=== PATIENT | female | born 1980 | race Caucasian/White ===

== ENCOUNTER → 2016-06-11 | Outpatient (CLI) | payer OTHER ==
--- NOTE | 2016-06-15 05:59 | SLEEPHOME ---
DATE OF PROCEDURE: 06/11/2016 ORDERED BY: Ela Thomson NP Diagnostic home sleep testing was performed due to concern for the obstructive sleep apnea syndrome. For testing, a NOX-T3 respiratory monitoring device. Continuous record was made of pulse, oxygen saturation, airlfow, chest and abdominal strain, and body position. 9 hours and 59 minutes of data were reviewed. Of these, 4 hours and 26 minutes were marked as time in bed. During the interval marked time in bed, there were 36 respiratory events identified of 10 seconds in duration or greater. The events were obstructive. Baseline heart rate 93 beats per minute. Pulse rate ranged 80-118 beats per minute. Baseline saturation 92%. Lowest oxygen saturation 85%. Testing was performed in both the supine and non-supine positions. IMPRESSION: Abnormal home sleep testing with repetitive respiratory events and oxygen desaturation to 855% with a respiratory event index of 8.1 is consistent with the obstructive sleep apnea syndrome. RECOMMENDATION: The patient should be encouraged to return to the sleep disorder center for formal pressure titration. In the interim, alcohol and sedative avoidance should be practiced and caution exercised during the operation of motor vehicles.
== END ==
LOC: M SLEEP HO 10:05
PROVIDERS: ATTEND Nurse Practitioner Adult Health
DX: G47.8 Other sleep disorders (principal)

== ENCOUNTER → 2017-01-13 | Outpatient (REF) | payer OTHER | LOC: M SFHCLERA 18:05 | PROVIDERS: ATTEND Nurse Practitioner Family | DX: J06.9 Acute upper respiratory infection, unspecified (principal) ==

== ENCOUNTER → 2018-06-11 | Outpatient (CLI) | payer BC ==
[~2018-06-11] MED LIST: CALC600T60 PO; LEVO-91 PO; PRIL20TA2 PO; PROZ40CA PO; VITA200016 PO
--- NOTE | 2018-06-12 02:25 | REP ---
Clinical: Abdominal pain and nausea. Technique: Two supine views of the abdomen and pelvis. Findings: Bowel gas pattern is nonspecific. No organomegaly. No abnormal calcifications. Skeletal structures are intact. Small phleboliths suggested in the pelvis. Impression: Nonspecific abdominal radiographs. Electronically Signed by Alexis Brunner MD 06/12/2018 02:16 A
== END ==
LOC: M LAB 12:32
DX: R10.9 Unspecified abdominal pain (principal); R11.2 Nausea with vomiting, unspecified; K62.5 Hemorrhage of anus and rectum; E73.9 Lactose intolerance, unspecified; R12 Heartburn

== ENCOUNTER → 2018-06-12 | Outpatient (REF) | payer BC ==
[2018-06-18 00:06] LABS: CALPROTECTIN STOOL 26 ug/g (0-120); FATS NEUTRAL Normal (.); FATS TOTAL Normal (.); PANCREATIC ELASTASE STOOL 474 (>200)
== END ==
LOC: M LAB REF 12:24
PROVIDERS: ATTEND Internal Medicine Gastroenterology
DX: R10.9 Unspecified abdominal pain (principal); R11.0 Nausea; K62.5 Hemorrhage of anus and rectum; E73.9 Lactose intolerance, unspecified; R12 Heartburn; R11.10 Vomiting, unspecified

== ENCOUNTER 2018-06-17 20:46 | Emergency (ER) | payer BC ==
[~2018-06-17] VITALS: Ht 157.5 cm; Wt 107.3 kg
[2018-06-17] MEDS ORDERED: VITA200016 PO (21:29)
[2018-06-17] MEDS ORDERED: PROZ40CA PO (21:29)
[2018-06-17] MEDS ORDERED: CALC600T60 PO (21:29)
[2018-06-17] MEDS ORDERED: PRIL20TA2 PO (21:29)
[2018-06-17] MEDS ORDERED: LEVO-91 PO (21:29)
[2018-06-17 21:45] LABS: BASO # 0.1 10^3/uL (0.0-0.2); BASO % 0.7 % (0.0-1.0); EOS # 0.3 10^3/uL (0.0-0.50); EOS % 2.2 % (0.0-3.0); HEMATOCRIT 42.6 % (36.0-47.0); HEMOGLOBIN 14.4 g/dl (12.0-15.5); LYMPH # 3.8 10^3/uL (1.5-4.5); LYMPH % 27.5 % (24.0-44.0); MEAN CORPUSCULAR HEMOGLOBIN 31.4 pg (27.0-33.0); MEAN CORPUSCULAR HGB CONC 33.8 g/dl (32.0-36.5); MONO # 1.1 10^3/uL (0.0-0.8); MONO % 8.2 % (0.0-5.0); NEUTROPHILS # 8.4 10^3/uL (1.8-7.7); NEUTROPHILS % 60.8 % (36.0-66.0); PLATELET COUNT, AUTOMATED 363 10^3/uL (150-450); RED BLOOD COUNT 4.58 10^6/uL (4.00-5.40); WHITE BLOOD COUNT 13.8 10^3/uL (4.0-10.0)
[2018-06-17 22:08] LABS: HCG, SERUM QUALITATIVE NEGATIVE (NEGATIVE)
[2018-06-17 22:09] LABS: ALBUMIN 3.7 GM/DL (3.2-5.2); ALT/SGPT 41 U/L (12-78); BILIRUBIN,DIRECT < 0.1 MG/DL (0.0-0.2); BILIRUBIN,TOTAL 0.2 MG/DL (0.2-1.0); BLOOD UREA NITROGEN 14 MG/DL (7-18); CALCIUM LEVEL 8.8 MG/DL (8.5-10.1); CARBON DIOXIDE LEVEL 30 MEQ/L (21-32); CHLORIDE LEVEL 104 MEQ/L (98-107); CREATININE FOR GFR 0.98 MG/DL (0.55-1.30); GLOMERULAR FILTRATION RATE > 60.0 (>60); GLUCOSE, FASTING 81 MG/DL (70-100); LIPASE 129 U/L (73-393); POTASSIUM SERUM 3.9 MEQ/L (3.5-5.1); SODIUM LEVEL 139 MEQ/L (136-145); TOTAL PROTEIN 7.1 GM/DL (6.4-8.2)
--- NOTE | 2018-06-17 23:04 | REPVR ---
EXAM: US Abdomen Limited, Right Upper Quadrant EXAM DATE/TIME: 06/17/18 (10:26pm) CLINICAL HISTORY: 37 year old female with RUQ pain TECHNIQUE: Real-time ultrasound of the abdomen with image documentation. Examination was focused on the right upper quadrant. COMPARISON: Abdomen plain film of 06/11/18 FINDINGS: The liver is visually normal in size and overall texture. Simple right hepatic lobe cyst (2.3 x 2.8 x 2.7 cm size) (2.6 cm avg. size). Partially contracted gallbladder (patient ate and drank tea recently). The gallbladder has normal wall thickness (1.6 mm), with no stones nor sludge seen. No pericholecystic fluid is appreciated. The CBD is not dilated (4.5 mm diameter). The pancreas appears unremarkable (the tail region is obscured by bowel gas). The right kidney measures 10.8 cm in length, with no hydronephrosis appreciated. No ascites is seen. IMPRESSION: No acute pathology. No evidence of cholecystitis. No biliary obstruction. See additional comments above. Electronically signed by: Telma Angela On 06/17/2018 23:03:34 PM
[2018-06-17 23:50] VITALS: BP 139/76
== END 2018-06-17 23:56 | disposition home or self-care (01) ==
LOC: M ED 20:46
DX: R10.9 Unspecified abdominal pain (principal); K92.9 Disease of digestive system, unspecified; E03.9 Hypothyroidism, unspecified; F17.200 Nicotine dependence, unspecified, uncomplicated; Z80.0 Family history of malignant neoplasm of digestive organs; Z88.2 Allergy status to sulfonamides; Z79.899 Other long term (current) drug therapy

== ENCOUNTER → 2018-07-08 | Outpatient (CLI) | payer BC ==
--- NOTE | 2018-07-08 13:13 | REP ---
Hepatobiliary scan and gallbladder ejection fraction: History: Right upper quadrant pain. Nausea. Technique: 6.5 mCi of technetium-99m mebrofenin was injected and sequential anterior images are acquired. 65 minutes after the mebrofenin injection, the patient consumed 8 ounces Ensure and an additional 60 minutes of imaging was acquired. Regions of interest are plotted around the gallbladder. Findings: The initial hepatocellular parenchymal uptake phase is normal and homogeneous. Intra- and extra-hepatic bile ducts and duodenum are labeled by the 10 -minute image. The gallbladder is first labeled on the 10 -minute image. There is normal washout from the liver parenchyma into the gallbladder and small intestine on subsequent images. The gallbladder ejection fraction is 70 %. Values greater than 35 % are considered normal with this technique. Impression: Normal hepatobiliary scan and normal gallbladder ejection fraction. Electronically Signed by Ronni Valverde MD 07/08/2018 01:04 P
== END ==
LOC: M RAD 08:07
PROVIDERS: ATTEND Internal Medicine Gastroenterology
DX: R10.11 Right upper quadrant pain (principal)
CPT/HCPCS: 78227; A9537; J2805

== ENCOUNTER → 2019-03-16 | Outpatient (CLI) | payer BC ==
[2019-03-16 14:54] LABS: ALBUMIN 3.7 GM/DL (3.2-5.2); ALT/SGPT 30 U/L (12-78); BILIRUBIN,TOTAL 0.3 MG/DL (0.2-1.0); BLOOD UREA NITROGEN 12 MG/DL (7-18); CARBON DIOXIDE LEVEL 29 MEQ/L (21-32); CHLORIDE LEVEL 105 MEQ/L (98-107); CHOLESTEROL LEVEL 257 MG/DL (<200); CHOLESTEROL RISK RATIO 6.763 (<5); CREATININE FOR GFR 0.95 MG/DL (0.55-1.30); GLOMERULAR FILTRATION RATE > 60.0 (>60); GLUCOSE, FASTING 70 MG/DL (70-100); HDL CHOLESTEROL 38 MG/DL (>40); LDL CHOLESTEROL 179 MG/DL (<100); NON-HDL-C 219 MG/DL; POTASSIUM SERUM 4.4 MEQ/L (3.5-5.1); SODIUM LEVEL 139 MEQ/L (136-145); TOTAL PROTEIN 7.3 GM/DL (6.4-8.2); TRIGLYCERIDES LEVEL 198 MG/DL (<150)
== END ==
LOC: M LAB 13:08
PROVIDERS: ATTEND Internal Medicine
DX: E03.9 Hypothyroidism, unspecified (principal)

== ENCOUNTER → 2019-07-04 | Outpatient (REF) | payer BC | LOC: M SFHCLERA 15:59 | PROVIDERS: ATTEND Physician Assistant | DX: R50.9 Fever, unspecified (principal) ==

== ENCOUNTER 2019-09-18 23:05 | Emergency (ER) | payer BC ==
[~2019-09-18] VITALS: Ht 160 cm; Wt 105.2 kg
[2019-09-18] MEDS ORDERED: PROBCAP14 PO (23:13)
[2019-09-18] MEDS ORDERED: MIRA3350 PO (23:13)
[2019-09-18] MEDS ORDERED: ZOLO100T PO (23:13)
[2019-09-18] MEDS ORDERED: LIPI20TA PO (23:13)
[2019-09-18] MEDS ORDERED: ANUS25SU PR (23:13)
[2019-09-19] MEDS ORDERED: NS 1,000 ML IV ONE (00:15)
[2019-09-19 00:17] LABS: BASO # 0.1 10^3/uL (0.0-0.2); BASO % 0.6 % (0.0-1.0); EOS # 0.2 10^3/uL (0.0-0.5); EOS % 1.9 % (0.0-3.0); HEMATOCRIT 41.2 % (36.0-47.0); HEMOGLOBIN 14.1 g/dl (12.0-15.5); LYMPH # 3.4 10^3/uL (1.5-5.0); LYMPH % 27.6 % (24.0-44.0); MEAN CORPUSCULAR HEMOGLOBIN 31.3 pg (27.0-33.0); MEAN CORPUSCULAR HGB CONC 34.2 g/dl (32.0-36.5); MEAN CORPUSCULAR VOLUME 91.6 fl (80.0-96.0); MONO # 1.1 10^3/uL (0.0-0.8); MONO % 9.1 % (0.0-5.0); NEUTROPHILS # 7.5 10^3/uL (1.5-8.5); NEUTROPHILS % 60.3 % (36.0-66.0); PLATELET COUNT, AUTOMATED 342 10^3/uL (150-450); WHITE BLOOD COUNT 12.4 10^3/uL (4.0-10.0)
[2019-09-19] MEDS ORDERED: TETRACAINE 0.5% OPHTH SOLN 4ML OU ONE (01:00)
[2019-09-19] MEDS ORDERED: ACETAZOLAMIDE 500 MG IV STA (01:19)
[2019-09-19] MEDS ORDERED: ACET50CA PO (01:59)
[2019-09-19 02:20] VITALS: BP 129/66
== END 2019-09-19 02:22 | disposition home or self-care (01) ==
LOC: M ED 23:05
DX: R51 Headache (principal); H73.899 Other specified disorders of tympanic membrane, unspecified ear; E03.9 Hypothyroidism, unspecified; E78.5 Hyperlipidemia, unspecified; K21.9 Gastro-esophageal reflux disease without esophagitis; Z79.899 Other long term (current) drug therapy; Z79.890 Hormone replacement therapy; Z88.1 Allergy status to other antibiotic agents; Z88.2 Allergy status to sulfonamides; F17.210 Nicotine dependence, cigarettes, uncomplicated
CPT/HCPCS: 80047; 85025; 96361; 96374; 99284; J1120

== ENCOUNTER → 2019-09-24 | Outpatient (CLI) | payer BC ==
[~2019-09-24] MED LIST changes: +ACET50CA PO; +ANUS25SU PR; +LIPI20TA PO; +MIRA3350 PO; +PROBCAP14 PO; +ZOLO100T PO
--- NOTE | 2019-09-28 23:41 | ECWPNPC ---
PATIENT NAME: HANK WILLOUGHBY : 1980 GENDER: FEMALE VISIT DATE: 09/24/2019 DISCHARGE DATE: 09/24/19 1705 VISIT LOCKED DATE TIME: PHYSICIAN: QUYNH CHESTER MD RESOURCE: QUYNH CHESTER MD REASON FOR APPOINTMENT 1. PRESEDATE SPINAL TAP; DISCUSS STOPPING DIAMOX 1 WEEK BEFORE PROCEDURE HISTORY OF PRESENT ILLNESS GENERAL: 39 YEAR OLD FEMALE PATIENT WITH A HISTORY OF NEUROLOGICAL CHANGES SUCH MEMORY LOSS AND BLURRY VISION. THE PATIENT WAS SEEN AND REFERRED HERE BY HER NEUROLOGIST, DR. CORIE ESCOTO, FOR A SPINAL TAP FOR BENIGN INTRACRANIAL HYPERTENSION. THE PATIENT DENIES UNEXPLAINED WEIGHT LOSS, FEVER, CHILLS, NEW CHANGES IN HER URINARY OR BOWEL CONTROL. THE PATIENT REPORTS HAVING A HISTORY OF URINARY INCONTINENCE. FALL RISK SCREENING: SCREENING :NO FALLS REPORTED IN THE LAST YEAR PAIN SCREENING: PATIENT HAS A COMPLAINT OF ACUTE OR CHRONIC PAIN :YES LOCATION OF PAIN:HEAD, ANKLE(S) INTENSITY OF PAIN (SCALE OF 1 TO 10): HEAD - 7EARS - 8-9ANKLE - 5 WHAT DOES YOUR PAIN FEEL LIKE:ACHING, CONTINOUS, THROBBING, OTHER EARS ITCH, PRESSURE SENSATION, FLUID-FILLED SENSATION DURATION:CONTINOUS, ALL DAY, AWAKENS FROM SLEEP PAIN IS INCREASED BY:OTHERS STRESS, BENDING, LEANING OVER, WORKING PAIN IS DECREASED BY:OTHERS LYING DOWN FLAT, DARK ROOM TREATMENT/MEDICATIONS USED TO MANAGE PAIN:OTC PAIN RELIEVERS LEVEL OF RELIEF FROM PAIN TREATMENTS IN THE PAST:25% PAIN HAS INTERFERED WITH THE FOLLOWING:BATHING/DRESSING, MOOD, WALKING ABILITY, EMPLOYMENT, HOUSEWORK, SLEEP, RELATIONSHIP WITH OTHERS, ENJOYMENT OF LIFE, TRANSPORTATION, TOILETING, FOOD PREPARATION PLAN/GOALS/TREATMENT/INTERVENTION/FOLLOW UP:SEE PLAN NURSING NOTE: - -. PAIN CENTER INTAKE QUESTIONS: DO YOU HAVE A HISTORY OF MRSA? :NO DO YOU TAKE A BLOOD THINNERS? :NO DO YOU HAVE ANY BLEEDING DISORDERS? :NO ANY NEW NUMBNESS OR WEAKNESS IN YOUR LEGS OR ARMS? :YES NUMBNESS AND TINGLING BOTH UPPER AND LOWER EXTREMITIES ANY PACEMAKER,DEFIBRILLATOR, OR DORSAL COLUMN STIMULATOR? :NO DO YOU HAVE ANY RASHES OR OPEN SORES? :NO CHRONIC PRURITUS LOWER LEGS BILATERALLY ARE YOU ALLERGIC TO IV DYE? :NO ARE YOU DIABETIC? :NO ANY NEW PROBLEMS WITH YOUR MEDICATIONS? :NO HAVE YOU RECEIVED A VACCINE IN THE PAST 30 DAYS? :NO DO YOU PLAN TO RECEIVE A VACCINE IN THE NEXT 21 DAYS? :NO DO YOU NEED ANY PRESCRIPTION? :NO DO YOU TAKE ANY IMMUNOSUPPRESSIVE MEDICATIONS? :NO CURRENT MEDICATIONS TAKING LEVOTHYROXINE SODIUM 125 MCG TABLET 1 TABLET ON AN EMPTY STOMACH IN THE MORNING ORALLY ONCE A DAY TAKING ZOLOFT 100 MG TABLET 1 TABLET ORALLY ONCE A DAY TAKING ACETAZOLAMIDE ER 500 MG CAPSULE EXTENDED RELEASE 12 HOUR 1 CAPSULE ORALLY TWICE A DAY TAKING LIPITOR 20 MG TABLET 1 TABLET ORALLY ONCE A DAY TAKING OMEPRAZOLE 40 MG CAPSULE DELAYED RELEASE 1 CAPSULE 30 MINUTES BEFORE MORNING MEAL ORALLY ONCE A DAY TAKING PROBIOTIC - CAPSULE DIRECTED ORALLY DAILY TAKING CALCIUM 600 MG TABLET 1 TABLET WITH MEALS ORALLY ONCE A DAY TAKING VITAMIN D3 250 MCG (57503 UT) CAPSULE DIRECTED ORALLY ONCE A WEEK TAKING VITAMIN D3 MAXIMUM STRENGTH 125 MCG (5000 UT) CAPSULE DIRECTED ORALLY DAILY TAKING ZOLOFT 50 MG TABLET 1 TABLET ORALLY ONCE A DAY NOT-TAKING VENTOLIN HFA 108 (90 BASE) MCG/ACT AEROSOL SOLUTION 1-2 PUFFS NEEDED INHALATION EVERY 6 HRS NOT-TAKING VENTOLIN HFA 108 (90 BASE) MCG/ACT AEROSOL SOLUTION 2 PUFFS NEEDED INHALATION EVERY 4 HRS MEDICATION LIST REVIEWED AND RECONCILED WITH THE PATIENT PAST MEDICAL HISTORY FRACTURE R TALUS 12/2010 PAPILLEDEMA BENIGN INTRACRANIAL HYPERTENSION OCCIPITAL NEURALGIA GERD DEPRESSION HYPOTHYROIDISM ALLERGIES SULFA: SWELLING, RASH - ALLERGY SURGICAL HISTORY T & A A CHILD RIGHT THIGH CYST REMOVAL 2013 FAMILY HISTORY FATHER: ALIVE 58 YRS, HTN MOTHER: ALIVE 56 YRS SOCIAL HISTORY GENERAL: TOBACCO USE ARE YOU A:CURRENT SMOKER ARE YOU INTERESTED IN QUITTING?READY TO QUIT VAPORNO E-CIGARETTENO LATEX QUESTIONNAIRE LATEX ALLERGY : HAVE YOU EVER DEVELOPED ANY TYPE OF REACTION AFTER HANDLING LATEX PRODUCTS SUCH RUBBER GLOVES, CONDOMS, DIAPHRAGMS, BALLOONS, SOCKS, OR UNDERWEAR?NO LATEX ALLERGY : HAVE YOU EVER DEVELOPED ANY TYPE OF REACTION DURING OR AFTER DENTAL APPOINTMENT, VAGINAL/RECTAL EXAMINATION, SURGICAL PROCEDURE, OR ANY OTHER EXPOSURE?NO LATEX RISK : HAVE YOU EVER HAD ANY DIFFICULTY BREATHING OR HIVES AFTER EATING OR HANDLING ANY FRUITS, OR VEGETABLES; SUCH KIWI, BANANAS, STONE FRUITS, OR CHESTNUTSNO LATEX RISK : DO YOU HAVE A PREVIOUS PERSONAL HISTORY OF MORE THAN NINE SURGERIES, SPINA BIFIDA, OR REPEATED CATHERIZATIONS? NO LATEX RISK : ARE YOU FREQUENTLY EXPOSED TO LATEX PRODUCTS IN YOUR OCCUPATION?YES DATE ASKED : 09/24/2019 ALCOHOL SCREENING DID YOU HAVE A DRINK CONTAINING ALCOHOL IN THE PAST YEAR?NO POINTS0 INTERPRETATIONNEGATIVE RECREATIONAL DRUG USE DRUG USE? DENIES 09/24/19 CAFFEINE 1-2/DAY. HIV / HEP-C SCREENING HIV TEST OFFERED TO PATIENT:YES DATE OFFERED:01/13/2017 TEST ACCEPTED:NO REASON:PATIENT DECLINED YAZIDI [id number] [employer]IST LANGUAGE LANGUAGES SPOKEN:LAO EDUCATION LEVEL OF EDUCATION:FINISHED [employer] S[employer]OL [employer] PRO[employer] LEARNING BARRIERS / SPECIAL NEEDS BARRIERS TO LEARNING?NO HEARING IMPAIRED?NO SOUNDS ARE DISTORTED VISION IMPAIRED?YES :CORRECTIVE LENSES COGNITIVELY IMPAIRED?YES IMPAIRED MEMORY READINESS TO LEARN?YES LEARNING PREFERENCES?NO LEARNING CAPABILITIES PRESENT?YES EMOTIONAL BARRIERS?NO SPECIAL DEVICES?NO INTERNET MARKETING EXECUTIVE NEEDED?NO 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 DIET: REGULAR. EXERCISE: NO REGULAR EXERCISE. PAIN CLINIC PFS, CLERGY, PUBLIC HEALTH REFERRALS HAS THE PATIENT BEEN EDUCATED REGARDING HIS/HER PLAN OF CARE?YES HAS THE PATIENT BEEN EDUCATED REGARDING PAIN, THE RISK FOR PAIN, THE IMPORTANCE OF EFFECTIVE PAIN MANAGEMENT, AND THE PAIN ASSESSMENT PROCESS?YES ADVANCE DIRECTIVE ADVANCE DIRECTIVE DISCUSSED WITH PATIENT:YES INFORMATION OFFERED AND DECLINED. HOSPITALIZATION/MAJOR DIAGNOSTIC PROCEDURE DENIES PAST HOSPITALIZATION REVIEW OF SYSTEMS CONSTITUTIONAL: ANY RECENT FEVER OR ILLNESS NO . ANY CHANGE IN YOUR MEDICAL CONDITION? NO . CHILLS NO . MUSCULOSKELETAL: ANY NEW PATTERNS OF PAIN OR NUMBNESS? NO, YES . SYSTEMIC LUPUS NO . LYME DISEASE NO . GASTROENTEROLOGY: ANY NEW CHANGE IN BOWEL CONTROL? YES . BARRETTS ESOPHAGUS NO . CIRRHOSIS NO . HEPATITIS NO . LIVER FAILURE NO . NO ABDOMINAL PAIN. ACID REFLUX YES . NO ANOREXIA. NO CONSTIPATION, YES . NO CRAMPING, YES . NO NAUSEA, YES . NO RECTAL BLEEDING, YES . NO VOMITING, NOT OFTEN . UNEXPLAINED WEIGHT LOSS NO . GENITOURINARY: ANY NEW CHANGE IN BLADDER CONTROL? YES . IS THERE A CHANCE YOU COULD BE ? NO . NEUROLOGY: HEAD INJURY NO . NEW ONSET DIZZINESS YES; CANT HEAR/CONFUSION . HEADACHE ADMITS . STROKES NO . VERTIGO YES . CARDIOLOGY: ANGINA NO . HEART ATTACK NO . HEART SURGERY NO . CONGESTIVE HEART FAILURE/FLUID OVERLOAD NO . CHEST PAIN NO . HIGH BLOOD PRESSURE NO . IRREGULAR HEART BEAT NO . RESPIRATORY: SLEEP APNEA NO . ASTHMA NO . SHORTNESS OF BREATH ON EXERTION YES . COUGH NO . WHEEZING NO . ENDOCRINOLOGY: ADRENAL GLAND DISORDER NO . THYROID DISORDER HYPOTHYROID . VITAL SIGNS WT 231.0 LBS, HT 64 IN, BMI 39.65 INDEX, BP 112/65 MM HG, HR 90 /MIN, RR 18 /MIN, TEMP 98.1 F, OXYGEN SAT % 98%, NA INITIALS AW 1447, REVIEWED BY: LS. EXAMINATION GENERAL: PATIENT IS ALERT O X 3 AND COOPERATIVE. LUNGS CLEAR, TO AUSCULTATION. HEART: NO MURMURS OR GALLOPS; FACIAL CRANIAL NERVES ARE GROSSLY NORMAL. GOOD SYMMETRY OF FACIAL MUSCLE MOVEMENT. NORMAL VISUAL LUNA. ASSESSMENTS NEUROLOGICAL SYMPTOMS - R29.90 (PRIMARY) BENIGN INTRACRANIAL HYPERTENSION - G93.2 TREATMENT NEUROLOGICAL SYMPTOMS CLINICAL NOTES: WE DISCUSSED SEVERAL ISSUES WITH MS. WILLOUGHBY'S CASE. THE PATIENT WILL COME IN NEXT WEEK FOR A SPINAL TAP WITH IV SEDATION. WE DISCUSSED THE BENEFITS, RISKS, AND ALTERNATIVES OF THE INJECTION AND THE PATIENT WOULD LIKE TO PROCEED. THE PATIENT'S NEUROLOGIST, DR. ESCOTO, ADVISED THE PATIENT TO STOP DIAMOX ONE WEEK BEFORE THE PROCEDURE, THEREFORE IT WAS ADVISED THE PATIENT SHOULD STOP TAKING THE MEDICATION STARTING TODAY. INSTRUCTIONS WERE GIVEN, QUESTIONS WERE ANSWERED, PATIENT REPORTS UNDERSTANDING AND AGREES WITH THE PLAN. I, SOHAIL GAVIRIA, DOCUMENTED THE ABOVE INFORMATION ACTING A SCRIBE FOR DR. CHESTER. I HAVE REVIEWED THE ABOVE DOCUMENT, WRITTEN BY SOHAIL SIMMS AND I VERIFY THAT IT IS ACCURATE. . PREVENTIVE MEDICINE PAIN CLINIC TEACHING: PROCEDURE TEACHING PRE SPINAL TAP INSTRUCTIONS REVIEWED WITH PT. VERBALIZED UNDERSTANDING.. PROCEDURE CODES FA211 ESTABILISHED PATIENT [facility] FACILITY CHARGE G8427 CURRENT MEDS W/DOSAGES DOCUMENTED G8730 PAIN ASSESS POS TOOL F/U PLAN DOC DISPOSITION & COMMUNICATION FOLLOW UP 1 WEEK ELECTRONICALLY SIGNED BY QUYNH CHESTER MD, MD ON 09/28/2019 AT 05:03 PM EDT DISCLAIMER : THIS IS A VISIT SUMMARY EXTRACTED FROM THE [employer] CHART. IT IS NOT A COPY OF THE [employer] PROGRESS NOTE. NIGELD
== END ==
LOC: M PAIN 14:30
PROVIDERS: ATTEND Anesthesiology
DX: R29.90 Unspecified symptoms and signs involving the nervous system (principal); G93.2 Benign intracranial hypertension

== ENCOUNTER → 2019-10-02 | Outpatient (CLI) | payer BC ==
[~2019-10-02] MED LIST changes: +LIDOCAINE 1% SDV 30ML VIAL As Ordered ONE; +MIDAZOLAM INJ 2MG/2ML VIAL (J2250 PER 1MG) As Ordered ONE; +fentaNYL 100 MCG/2 ML INJECTION (J3010) As Ordered ONE
[2019-10-02 15:12] LABS: CSF TUBE# GLU TUBE 1; CSF TUBE# TP TUBE 1; GLUCOSE CSF 52 MG/DL (40-75); TOTAL PROTEIN,CSF 33 MG/DL (15-45)
[2019-10-02 15:15] LABS: APPEARANCE, CSF CLEAR (CLEAR); COLOR, CSF COLORLESS (COLORLESS); CSF TUBE# CELL CNT TUBE 3
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
== END ==
LOC: M PAIN 12:45
PROVIDERS: ATTEND Psychiatry & Neurology Neurology
DX: R29.90 Unspecified symptoms and signs involving the nervous system (principal); G93.2 Benign intracranial hypertension
CPT/HCPCS: 36415; 62270; 82784; 82945; 83916; 84157; 87070; 87102; 87205; 87252; 87483; 88108; 88313; 89050; 99152; 99153; J2250; J3010

== ENCOUNTER → 2019-11-03 | Outpatient (CLI) | payer BC ==
[~2019-11-03] MED LIST changes: -LIDOCAINE 1% SDV 30ML VIAL As Ordered ONE; -MIDAZOLAM INJ 2MG/2ML VIAL (J2250 PER 1MG) As Ordered ONE; -fentaNYL 100 MCG/2 ML INJECTION (J3010) As Ordered ONE
--- NOTE | 2019-11-04 10:24 | REP ---
KUB ABDOMEN AND PELVIS: Two KUB films of the abdomen and pelvis performed. There is no evidence of bowel obstruction. There appears to be mild fecal material throughout the colon. There are a couple of phleboliths inferiorly in the left pelvis. The visualized osseous structures are unremarkable. IMPRESSION: Essentially unremarkable KUB. Mild fecal material throughout the colon. No evidence of obstruction. Electronically Signed by Fernando Smith MD 11/04/2019 11:19 P
== END ==
LOC: M RAD 19:13
PROVIDERS: ATTEND Internal Medicine Gastroenterology
DX: K62.89 Other specified diseases of anus and rectum (principal); K59.00 Constipation, unspecified

== ENCOUNTER → 2021-04-03 | Outpatient (REF) | LOC: M LABSMTC 09:39 | PROVIDERS: ATTEND Family Medicine | DX: Z20.822 Contact with and (suspected) exposure to COVID-19 (principal); Z11.52 Encounter for screening for COVID-19 ==

== ENCOUNTER 2021-04-05 11:49 | Outpatient (CLI) | payer BC ==
[~2021-04-05] VITALS: Ht 157.5 cm; Wt 97.0 kg
[~2021-04-05 11:49] MED LIST changes: +ALBUTEROL 90 MCG/ACT 8GM HFA INHALER INH PRN; +ALBUTEROL SULFATE 2.5 MG/0.5 ML INH NEB SOLN INH PRN; +CASIRIVIMAB/IMDEVIMAB 1,200 MG in NS 250 ML IV ONE; +EPINEPHrine INJ 1 MG/ML 1ML AMP IM PRN; +NS 1,000 ML IV SCH; +diphenhydrAMINE 50MG/ML VIAL (J1200) IV PRN; +methylPREDNISolone 125MG 2ML VIAL IV PRN
[2021-04-05 12:21] VITALS: BP 135/69
[2021-04-05 12:51] VITALS: BP 108/57
[2021-04-05 13:21] VITALS: BP 104/62
[2021-04-05 14:21] VITALS: BP 110/61
== END 2021-04-05 14:21 | disposition home or self-care (01) ==
LOC: M OPCLI4PR 11:49
PROVIDERS: ATTEND Family Medicine
DX: U07.1 COVID-19 (principal); Z88.2 Allergy status to sulfonamides

== ENCOUNTER → 2021-08-16 | Outpatient (REF) | payer BC ==
[~2021-08-16] MED LIST changes: -ALBUTEROL 90 MCG/ACT 8GM HFA INHALER INH PRN; -ALBUTEROL SULFATE 2.5 MG/0.5 ML INH NEB SOLN INH PRN; -CASIRIVIMAB/IMDEVIMAB 1,200 MG in NS 250 ML IV ONE; -EPINEPHrine INJ 1 MG/ML 1ML AMP IM PRN; -NS 1,000 ML IV SCH; -diphenhydrAMINE 50MG/ML VIAL (J1200) IV PRN; -methylPREDNISolone 125MG 2ML VIAL IV PRN
== END ==
LOC: M LAB REF 16:37
PROVIDERS: ATTEND Internal Medicine
DX: Z80.0 Family history of malignant neoplasm of digestive organs (principal)

== ENCOUNTER 2022-01-01 02:52 | Emergency (ER) | payer BC ==
[~2022-01-01] VITALS: Ht 157.5 cm; Wt 100.0 kg
[2022-01-01] MEDS ORDERED: KETOROLAC 30 MG/ML 1ML VIAL IV ONE (09:40)
[2022-01-01] MEDS ORDERED: LIDOCAINE 5% (LIDODERM) PATCH TD ONE (09:40)
[2022-01-01] MEDS ORDERED: methocarbamoL 750 MG TAB PO ONE (09:40)
[2022-01-01 10:41] LABS: BASO # 0.1 10^3/uL (0.0-0.2); BASO % 0.9 % (0.0-1.0); EOS # 0.3 10^3/uL (0.0-0.5); EOS % 2.4 % (0.0-3.0); HEMATOCRIT 44.8 % (36.0-47.0); LYMPH # 2.8 10^3/uL (1.5-5.0); LYMPH % 26.6 % (24.0-44.0); MEAN CORPUSCULAR HEMOGLOBIN 30.9 pg (27.0-33.0); MEAN CORPUSCULAR HGB CONC 33.5 g/dl (32.0-36.5); MEAN CORPUSCULAR VOLUME 92.4 fl (80.0-96.0); MONO # 0.8 10^3/uL (0.0-0.8); MONO % 7.3 % (2.0-8.0); NEUTROPHILS # 6.6 10^3/uL (1.5-8.5); NEUTROPHILS % 62.3 % (36.0-66.0); PLATELET COUNT, AUTOMATED 316 10^3/uL (150-450); RED BLOOD COUNT 4.85 10^6/uL (4.00-5.40); WHITE BLOOD COUNT 10.6 10^3/uL (4.0-10.0)
[2022-01-01 10:52] VITALS: BP 155/75
[2022-01-01 11:11] LABS: ERYTHROCYTE SEDIMENTATION RATE 11 mm/hr (0-20)
[2022-01-01] MEDS ORDERED: **NOTE PATIENT COMMENT** MISC XX SCH (21:00)
== END 2022-01-01 12:00 | disposition left against medical advice (07) ==
LOC: M ED 02:52
DX: M54.50 Low back pain, unspecified (principal); Z53.20 Procedure and treatment not carried out because of patient's decision for unspecified reasons; F17.200 Nicotine dependence, unspecified, uncomplicated; Z88.1 Allergy status to other antibiotic agents; Z88.2 Allergy status to sulfonamides
CPT/HCPCS: 72110; 72220; 80047; 85025; 85652; 86140; 96374; 99283; J1885

== ENCOUNTER → 2022-01-10 | Outpatient (REF) | payer BC ==
[2022-01-10 17:19] LABS: C REACTIVE PROTEIN QUANTITATIV 1.18 MG/DL (0.00-0.30); RHEUMATOID FACTOR QUANT < 10.0 IU/ML (<15.0)
[2022-01-11 13:44] LABS: AMORPHOUS SEDIMENT, URINE LARGE AMOUNT (NEGATIVE)
[2022-01-11 13:45] LABS: MUCUS, URINE SMALL AMOUNT (NEGATIVE); SQUAMOUS EPITHELIAL CELL URINE SMALL AMOUNT /hpf (SMALL AMT)
[2022-01-11 13:46] LABS: BACTERIA, URINE NONE SEEN; HYALINE CAST, URINE NONE SEEN /lpf (0-1); RBC, URINE 0-1 /hpf (0-3); WBC, URINE 0-1 /hpf (0-3)
== END ==
LOC: M LAB REF 16:10
PROVIDERS: ATTEND Internal Medicine
DX: M79.10 Myalgia, unspecified site (principal); M15.9 Polyosteoarthritis, unspecified

== ENCOUNTER → 2022-01-19 | Outpatient (CLI) | payer BC | LOC: M RAD 15:26 | PROVIDERS: ATTEND Internal Medicine | DX: M46.1 Sacroiliitis, not elsewhere classified (principal); M51.26 Other intervertebral disc displacement, lumbar region; M51.36 Other intervertebral disc degeneration, lumbar region ==

== ENCOUNTER 2022-08-03 14:30 | Emergency (ER) | payer BC ==
[~2022-08-03] VITALS: Ht 157.5 cm; Wt 97.6 kg
[2022-08-03] MEDS ORDERED: BUPR-71 (14:53)
[2022-08-03] MEDS ORDERED: ACET500C10 PO (14:53)
[2022-08-03 17:43] LABS: BASO # 0.1 10^3/uL (0.0-0.2); BASO % 0.9 % (0.0-1.0); EOS # 0.2 10^3/uL (0.0-0.5); EOS % 1.8 % (0.0-3.0); HEMATOCRIT 43.9 % (36.0-47.0); HEMOGLOBIN 14.3 g/dl (12.0-15.5); LYMPH # 2.9 10^3/uL (1.5-5.0); LYMPH % 28.9 % (24.0-44.0); MEAN CORPUSCULAR HEMOGLOBIN 30.8 pg (27.0-33.0); MEAN CORPUSCULAR HGB CONC 32.6 g/dl (32.0-36.5); MEAN CORPUSCULAR VOLUME 94.4 fl (80.0-96.0); MONO # 0.8 10^3/uL (0.0-0.8); MONO % 7.7 % (2.0-8.0); NEUTROPHILS % 60.3 % (36.0-66.0); PLATELET COUNT, AUTOMATED 297 10^3/uL (150-450); RED BLOOD COUNT 4.65 10^6/uL (4.00-5.40)
[2022-08-03] MEDS ORDERED: PROHANCE 279.3MG/ML 5ML VIAL As Ordered ONE (17:56)
[2022-08-03] MEDS ORDERED: PROHANCE 279.3MG/ML 15ML VIAL As Ordered ONE (17:56)
[2022-08-03 17:58] LABS: ERYTHROCYTE SEDIMENTATION RATE 21 mm/hr (0-20)
[2022-08-03 18:13] LABS: ALBUMIN 3.4 G/DL (3.2-5.2); ALKALINE PHOSPHATASE 82 U/L (46-116); ALT/SGPT 17 U/L (7.0-40); AST/SGOT 16 U/L (<34); BILIRUBIN,DIRECT < 0.1 MG/DL (<0.4); BILIRUBIN,TOTAL 0.2 MG/DL (0.3-1.2); BLOOD UREA NITROGEN 16 MG/DL (9-23); CALCIUM LEVEL 8.3 MG/DL (8.5-10.1); CARBON DIOXIDE LEVEL 30 MMOL/L (20-31); CHLORIDE LEVEL 107 MMOL/L (98-107); CREATININE FOR GFR 1.27 MG/DL (0.55-1.30); GLOMERULAR FILTRATION RATE 49.4 (>58); GLUCOSE, FASTING 87 MG/DL (60-100); POTASSIUM SERUM 4.6 MMOL/L (3.5-5.1); SODIUM LEVEL 140 MMOL/L (136-145); TOTAL PROTEIN 6.6 G/DL (5.7-8.2)
[2022-08-03 18:43] LABS: RSV AMPLIFICATION NEGATIVE (NEGATIVE)
[2022-08-03 20:45] VITALS: BP 124/65
== END 2022-08-03 20:54 | disposition home or self-care (01) ==
LOC: M ED 14:30
DX: R51.9 Headache, unspecified (principal); K21.9 Gastro-esophageal reflux disease without esophagitis; E03.9 Hypothyroidism, unspecified; E78.5 Hyperlipidemia, unspecified; G93.2 Benign intracranial hypertension; F19.10 Other psychoactive substance abuse, uncomplicated; F17.200 Nicotine dependence, unspecified, uncomplicated; Z88.2 Allergy status to sulfonamides
CPT/HCPCS: 36415; 70553; 80048; 80076; 83605; 84702; 85025; 85652; 86140; 87040; 87631; 99284; A9576

== ENCOUNTER → 2023-08-01 | Outpatient (CLI) | payer BC ==
[~2023-08-01] MED LIST changes: +ACET500C10 PO; +BUPR-71
== END ==
LOC: M WHC 15:33
PROVIDERS: ATTEND Internal Medicine
DX: Z12.31 Encounter for screening mammogram for malignant neoplasm of breast (principal)

== ENCOUNTER → 2023-08-07 | Outpatient (REF) | payer BC | LOC: M LAB REF 16:35 | PROVIDERS: ATTEND Internal Medicine | DX: R52 Pain, unspecified (principal) ==

== ENCOUNTER → 2023-08-07 | Outpatient (CLI) | payer BC | LOC: M WUC 12:57 | PROVIDERS: ATTEND Internal Medicine | DX: N39.0 Urinary tract infection, site not specified (principal) ==

== ENCOUNTER → 2023-11-07 | Outpatient (REF) | payer BC ==
[2023-11-12 14:57] LABS: HPV APTIMA Not Detected (Not Detected)
== END ==
LOC: M SFHCWAGY 13:02
PROVIDERS: ATTEND Nurse Practitioner Family
DX: Z12.4 Encounter for screening for malignant neoplasm of cervix (principal)
CPT/HCPCS: 87624; G0123

== ENCOUNTER 2023-11-29 20:24 | Emergency (ER) | payer BC ==
[~2023-11-29] VITALS: Ht 157.5 cm; Wt 103.4 kg
[2023-11-29 20:26] VITALS: BP 134/78; TEMP 97.7; O2SAT 98
[2023-11-30] MEDS ORDERED: RABIES IMMUNE GLOBULIN 1500 INTERNATIONAL UNIT/5ML VIAL IM.IMMUN ONE (03:10)
[2023-11-30] MEDS: BOOSTRIX VACCINE (TETANUS/DIPHTH/ACEL. PERTUSSIS) 0.5ML SYR IM.IMMUN ONE (04:04)
[2023-11-30] MEDS: RABIES VACCINE HUMAN 2.5 INTERNATIONAL UNITS/ML VIAL IM.IMMUN ONE (04:10)
[2023-11-30] MEDS: RABIES IMMUNE GLOBULIN 300 INTERNATIONAL UNITS/1ML VIAL IM.IMMUN ONE (04:22)
[2023-11-30] MEDS: RABIES IMMUNE GLOBULIN 1500 INTERNATIONAL UNIT/5ML VIAL IM.IMMUN ONE (04:26)
== END 2023-11-30 05:12 | disposition home or self-care (01) ==
LOC: M ED 20:24
DX: Z20.3 Contact with and (suspected) exposure to rabies (principal); Z29.14 Encounter for prophylactic rabies immune globulin; Z23 Encounter for immunization; E03.9 Hypothyroidism, unspecified; I10 Essential (primary) hypertension; F41.9 Anxiety disorder, unspecified; F32.A Depression, unspecified; F17.210 Nicotine dependence, cigarettes, uncomplicated; Z88.2 Allergy status to sulfonamides; Z79.899 Other long term (current) drug therapy

== ENCOUNTER → 2024-01-10 | Outpatient (CLI) | payer BC | LOC: M WHC 13:03 | PROVIDERS: ATTEND Nurse Practitioner Family | DX: R10.2 Pelvic and perineal pain (principal) ==

== ENCOUNTER → 2024-01-14 | Outpatient (CLI) | payer BC ==
[2024-01-14 18:36] LABS: BASO # 0.1 10^3/uL (0.0-0.2); BASO % 0.6 % (0.0-1.0); EOS # 0.3 10^3/uL (0.0-0.5); EOS % 2.4 % (0.0-3.0); HEMATOCRIT 43.9 % (36.0-47.0); HEMOGLOBIN 14.5 g/dl (12.0-15.5); LYMPH # 3.1 10^3/uL (1.5-5.0); LYMPH % 28.6 % (24.0-44.0); MEAN CORPUSCULAR HEMOGLOBIN 30.9 pg (27.0-33.0); MEAN CORPUSCULAR VOLUME 93.4 fl (80.0-96.0); MONO # 0.8 10^3/uL (0.0-0.8); NEUTROPHILS # 6.6 10^3/uL (1.5-8.5); NEUTROPHILS % 60.9 % (36.0-66.0); PLATELET COUNT, AUTOMATED 333 10^3/uL (150-450); WHITE BLOOD COUNT 10.8 10^3/uL (4.0-10.0)
[2024-01-14 19:09] LABS: ALBUMIN 3.8 G/DL (3.2-5.2); BILIRUBIN,TOTAL 0.2 MG/DL (0.3-1.2); CALCIUM LEVEL 9.1 MG/DL (8.5-10.1); CREATININE FOR GFR 1.07 MG/DL (0.55-1.30); GLOMERULAR FILTRATION RATE 59.9 (>58); POTASSIUM SERUM 4.3 MMOL/L (3.5-5.1)
[2024-01-14 19:10] LABS: FREE T4 1.16 NG/DL (0.89-1.76)
[2024-01-14 19:11] LABS: PROLACTIN 8.18 NG/ML; THYROID STIMULATING HORMONE 5.813 uIU/ML (0.55-4.78)
[2024-01-14 19:54] LABS: HEMOGLOBIN A1c 5.4 % (4.0-6.0)
== END ==
LOC: M PLALAB 16:36
PROVIDERS: ATTEND Nurse Practitioner Family
DX: N91.2 Amenorrhea, unspecified (principal)

== ENCOUNTER → 2024-01-16 | Outpatient (CLI) | payer BC | LOC: M RAD 16:30 | PROVIDERS: ATTEND Physician Assistant | DX: M25.561 Pain in right knee (principal) ==

== ENCOUNTER → 2024-02-07 | Outpatient (REF) | LOC: M EMP 11:41 | PROVIDERS: ATTEND Family Medicine | DX: Z11.52 Encounter for screening for COVID-19 (principal) ==

== ENCOUNTER 2024-03-04 10:35 | Emergency (ER) | payer OTHER, BC ==
[~2024-03-04] VITALS: Ht 157.5 cm; Wt 101.2 kg
[2024-03-04 11:27] VITALS: BP 134/89; TEMP 98; O2SAT 95
[2024-03-04 11:33] LABS: BASO # 0.1 10^3/uL (0.0-0.2); BASO % 0.9 % (0.0-1.0); EOS # 0.2 10^3/uL (0.0-0.5); EOS % 1.4 % (0.0-3.0); HEMATOCRIT 44.7 % (36.0-47.0); HEMOGLOBIN 15.3 g/dl (12.0-15.5); LYMPH % 28.7 % (24.0-44.0); MEAN CORPUSCULAR HEMOGLOBIN 31.5 pg (27.0-33.0); MEAN CORPUSCULAR HGB CONC 34.2 g/dl (32.0-36.5); MONO # 0.8 10^3/uL (0.0-0.8); MONO % 7.3 % (2.0-8.0); NEUTROPHILS # 6.5 10^3/uL (1.5-8.5); NEUTROPHILS % 61.2 % (36.0-66.0); PLATELET COUNT, AUTOMATED 354 10^3/uL (150-450); RED BLOOD COUNT 4.86 10^6/uL (4.00-5.40); WHITE BLOOD COUNT 10.5 10^3/uL (4.0-10.0)
[2024-03-04 11:59] LABS: ALBUMIN 3.9 G/DL (3.2-5.2); ALKALINE PHOSPHATASE 97 U/L (35-104); ALT/SGPT 30 U/L (7.0-40); AST/SGOT 21 U/L (<34); BILIRUBIN,TOTAL 0.4 MG/DL (0.3-1.2); BLOOD UREA NITROGEN 19 MG/DL (9-23); CALCIUM LEVEL 9.5 MG/DL (8.5-10.1); CARBON DIOXIDE LEVEL 27 MMOL/L (20-31); CHLORIDE LEVEL 108 MMOL/L (98-107); CREATININE FOR GFR 0.91 MG/DL (0.55-1.30); GLOMERULAR FILTRATION RATE > 60.0 (>58); GLUCOSE, FASTING 85 MG/DL (60-100); POTASSIUM SERUM 4.5 MMOL/L (3.5-5.1); SODIUM LEVEL 137 MMOL/L (136-145); TOTAL PROTEIN 7.3 G/DL (5.7-8.2)
[2024-03-04 12:01] LABS: HEPATITIS B SURFACE ANTIBODY NEGATIVE (POSITIVE)
[2024-03-04 12:03] LABS: HCG, SERUM QUALITATIVE NEGATIVE (NEGATIVE)
[2024-03-04 12:13] LABS: HEPATITIS B SURFACE ANTIGEN NEGATIVE (NEGATIVE)
[2024-03-04 12:26] LABS: HIV SCREEN CENTAUR EXPOSED NEGATIVE (NEGATIVE)
[2024-03-04 12:34] LABS: HEPATITIS C VIRUS ABY INDEX < 0.02 INDEX (<0.8)
== END 2024-03-04 12:18 | disposition home or self-care (01) ==
LOC: M ED 10:35
DX: Z77.21 Contact with and (suspected) exposure to potentially hazardous body fluids (principal); Z88.2 Allergy status to sulfonamides; Z79.899 Other long term (current) drug therapy

== ENCOUNTER 2024-04-27 13:11 | Emergency (ER) | payer BC, OTHER ==
[~2024-04-27] VITALS: Ht 160 cm; Wt 104.5 kg
[2024-04-27] MEDS: ASPIRIN 81MG CHEW TABLET PO ONE (13:49)
[2024-04-27] MEDS: NITROGLYCERIN 0.4MG SUBL TABLET SL PRN (13:51)
[2024-04-27 13:53] LABS: BASO # 0.1 10^3/uL (0.0-0.2); BASO % 0.7 % (0.0-1.0); EOS # 0.2 10^3/uL (0.0-0.5); HEMATOCRIT 43.5 % (36.0-47.0); HEMOGLOBIN 14.7 g/dl (12.0-15.5); LYMPH # 3.2 10^3/uL (1.5-5.0); LYMPH % 32.8 % (24.0-44.0); MEAN CORPUSCULAR HEMOGLOBIN 31.1 pg (27.0-33.0); MEAN CORPUSCULAR HGB CONC 33.8 g/dl (32.0-36.5); MONO # 0.9 10^3/uL (0.0-0.8); MONO % 8.9 % (2.0-8.0); NEUTROPHILS # 5.4 10^3/uL (1.5-8.5); NEUTROPHILS % 55.1 % (36.0-66.0); PLATELET COUNT, AUTOMATED 311 10^3/uL (150-450); RED BLOOD COUNT 4.73 10^6/uL (4.00-5.40); WHITE BLOOD COUNT 9.8 10^3/uL (4.0-10.0)
[2024-04-27 14:07] VITALS: BP 102/59
[2024-04-27 14:10] LABS: INR 0.96; PARTIAL THROMBOPLASTIN TIME 28.5 SECONDS (24.8-34.2); PROTHROMBIN TIME 13.1 SECONDS (12.5-14.5)
[2024-04-27 14:13] LABS: LIPASE 40 U/L (12-53)
[2024-04-27 14:15] LABS: ALBUMIN 3.7 G/DL (3.2-5.2); ALKALINE PHOSPHATASE 90 U/L (35-104); ALT/SGPT 31 U/L (7.0-40); AST/SGOT 33 U/L (<34); BILIRUBIN,DIRECT < 0.1 MG/DL (<0.4); BILIRUBIN,TOTAL 0.3 MG/DL (0.3-1.2); BLOOD UREA NITROGEN 21 MG/DL (9-23); CALCIUM LEVEL 9.2 MG/DL (8.5-10.1); CARBON DIOXIDE LEVEL 28 MMOL/L (20-31); CHLORIDE LEVEL 106 MMOL/L (98-107); CK-MB VALUE MASS 1.2 NG/ML (<3.6); CREATININE FOR GFR 0.93 MG/DL (0.55-1.30); GLOMERULAR FILTRATION RATE > 60.0 (>58); GLUCOSE, FASTING 96 MG/DL (60-100); POTASSIUM SERUM 4.6 MMOL/L (3.5-5.1); SODIUM LEVEL 140 MMOL/L (136-145); TOTAL PROTEIN 7.3 G/DL (5.7-8.2)
[2024-04-27 14:19] LABS: FREE T4 1.22 NG/DL (0.89-1.76); THYROID STIMULATING HORMONE 3.127 uIU/ML (0.55-4.78)
[2024-04-27 14:20] LABS: CPK CREATINE PHOSPHOKINASE 553 U/L (34-145); MB/CK RELATIVE INDEX 0.21 (< OR =4)
[2024-04-27] MEDS ORDERED: ISOVUE-370 76% 100ML VIAL As Ordered ONE (14:32)
[2024-04-27] MEDS ORDERED: VENTAER INH (14:57)
[2024-04-27] MEDS ORDERED: CEFD1CAP9 PO (14:57)
[2024-04-27] MEDS ORDERED: CALCTAB41 PO (14:57)
[2024-04-27] MEDS ORDERED: ASPI81TA26 PO (14:57)
[2024-04-27] MEDS ORDERED: HOME MED LIST COMPLETE! XX SCH (15:00)
[2024-04-27 15:08] VITALS: TEMP 97.9
[2024-04-27 15:43] LABS: CK-MB VALUE MASS 1.8 NG/ML (<3.6)
[2024-04-27 15:45] LABS: CPK CREATINE PHOSPHOKINASE 514 U/L (34-145); MB/CK RELATIVE INDEX 0.35 (< OR =4)
[2024-04-27 16:36] VITALS: BP 105/61; O2SAT 95
== END 2024-04-27 16:30 | disposition home or self-care (01) ==
LOC: M ED 13:11
DX: R07.9 Chest pain, unspecified (principal); R00.0 Tachycardia, unspecified; K21.9 Gastro-esophageal reflux disease without esophagitis; E03.9 Hypothyroidism, unspecified; F32.A Depression, unspecified; F17.210 Nicotine dependence, cigarettes, uncomplicated; Z88.2 Allergy status to sulfonamides; Z79.51 Long term (current) use of inhaled steroids; Z79.1 Long term (current) use of non-steroidal anti-inflammatories (NSAID); Z79.2 Long term (current) use of antibiotics; Z79.899 Other long term (current) drug therapy
CPT/HCPCS: 36415; 71045; 71275; 80048; 80076; 82550; 82553; 83690; 84439; 84443; 84484; 85025; 85610; 85730; 93005; 93041; 94760; 99285; Q9967

== ENCOUNTER → 2024-06-10 | Outpatient (CLI) | payer BC ==
[~2024-06-10] MED LIST changes: +ASPI81TA26 PO; +CALCTAB41 PO; +CEFD1CAP9 PO; +VENTAER INH
== END ==
LOC: M RAD 09:34
PROVIDERS: ATTEND Internal Medicine
DX: K21.9 Gastro-esophageal reflux disease without esophagitis (principal); K44.9 Diaphragmatic hernia without obstruction or gangrene